=== PATIENT | female | born 1935 | race Caucasian/White ===

== ENCOUNTER 2016-09-24 15:23 | Inpatient (IN) | payer OTHER, MEDICARE ==
[~2016-09-24] VITALS: Ht 172.7 cm; Wt 83.9 kg
[2016-09-24 16:00] VITALS: BP 150/67; PULSE 88; RESP 13; TEMP 99; O2SAT 94
[2016-09-24] MEDS ORDERED: ONDANSETRON HCL 4 MG/2 ML VIAL IV PRN (16:00)
[2016-09-24] MEDS ORDERED: GLUCAGON 1 MG/ML VIAL OTHER PRN (16:00)
[2016-09-24] MEDS ORDERED: SODIUM CHLORIDE 0.9% FLUSH 5 ML FLUSH IVF PRN (16:00)
[2016-09-24] MEDS ORDERED: DEXTROSE 50% IN WATER 50 ML VIAL(D50) IV PUSH PRN (16:00)
[2016-09-24] MEDS: INSULIN NovoLIN REGULAR SUPPLEMENTAL SCALE SQ SCH ×2 (16:00→21:29)
[2016-09-24] MEDS ORDERED: Post-op Orders (for Pharmacy) MISC XX ONE (16:00)
[2016-09-24] MEDS ORDERED: PANTOPRAZOLE SOD 40 MG DELAYED RELEASE TAB PO SCH (16:00)
[2016-09-24] MEDS ORDERED: NALOXONE HCL 0.4 MG/ML AMP IV PRN (16:00)
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
[2016-09-24] MEDS: MORPHINE SULFATE 4 MG/ML INJ IV PRN ×2 (16:39→18:40)
[2016-09-24 17:59] LABS: APTT (PATIENT) 22.5 SEC (24.3-30.1); PROTHROMBIN TIME - PATIENT 10.5 SEC (9.8-11.6)
[2016-09-24 18:02] LABS: HEMATOCRIT 31.7 % (35.0-46.0); MEAN CELL VOLUME 88.5 FL (80.0-100.0); MEAN CORPUSCULAR HEMOGLOBIN 28.9 PG (27.0-34.0); MEAN CORPUSCULAR HGB CONC 32.7 % (32.0-36.0); PLATELET COUNT 183 TH/MM3 (150-450); RED BLOOD COUNT 3.58 MIL/MM3 (4.00-5.30); RED CELL DISTRIBUTION WIDTH 14.2 % (11.6-17.2); REVIEW FLAG FINAL; WHITE BLOOD COUNT 9.4 TH/MM3 (4.0-11.0)
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
[2016-09-24 19:33] LABS: ANION GAP 9 MEQ/L (5-15); AST (GOT) 34 U/L (15-37); BLOOD UREA NITROGEN 24 MG/DL (7-18); CHLORIDE 106 MEQ/L (98-107); GLOMERULAR FILTRATION RATE 51 ML/MIN (>89); SODIUM (NA) 140 MEQ/L (136-145)
[2016-09-24 19:37] LABS: ALKALINE PHOSPHATASE 63 U/L (45-117); ALT (GPT) 29 U/L (10-53); TOTAL BILIRUBIN ADULT 0.7 MG/DL (0.2-1.0)
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
[2016-09-24 20:00] VITALS: BP 134/62; PULSE 84; RESP 13; TEMP 97.6; O2SAT 99
[2016-09-24] MEDS ORDERED: DOCUSATE SODIUM 100 MG CAP PO SCH (21:00)
[2016-09-24] MEDS: SODIUM CHLORIDE 0.9% FLUSH 5 ML FLUSH IVF SCH (21:28)
[2016-09-24 22:42] VITALS: O2SAT 98
[2016-09-25] VITALS: BP 137/62; PULSE 80; RESP 16; O2SAT 98
[2016-09-25 04:00] VITALS: BP 182/77; PULSE 84; RESP 11; O2SAT 99
[2016-09-25 04:15] VITALS: BP 167/105
[2016-09-25 04:21] LABS: HEMATOCRIT 31.8 % (35.0-46.0); MEAN CELL VOLUME 88.7 FL (80.0-100.0); MEAN CORPUSCULAR HEMOGLOBIN 29.5 PG (27.0-34.0); MEAN CORPUSCULAR HGB CONC 33.3 % (32.0-36.0); PLATELET COUNT 179 TH/MM3 (150-450); RED BLOOD COUNT 3.58 MIL/MM3 (4.00-5.30); RED CELL DISTRIBUTION WIDTH 14.5 % (11.6-17.2); REVIEW FLAG FINAL; WHITE BLOOD COUNT 8.6 TH/MM3 (4.0-11.0)
[2016-09-25 04:30] VITALS: BP 151/67
[2016-09-25] MEDS: oxyCODONE/ACETAMINOPHEN 5 MG/325 MG TAB PO PRN ×2 (04:36→11:32)
[2016-09-25 04:37] LABS: BICARBONATE 26.4 MEQ/L (21.0-32.0); POTASSIUM 4.4 MEQ/L (3.5-5.1)
--- NOTE | 2016-09-25 06:01 | RADRPT ---
EXAM DATE/TIME: 09/25/2016 04:40 [facility] COMPARISON: CHEST SINGLE AP, September 24, 2016, 16:07. INDICATIONS : Short of breath. MEDICAL HISTORY : None. SURGICAL HISTORY : None. ENCOUNTER: Subsequent ACUITY: 3 days PAIN SCORE: 7/10 LOCATION: Bilateral chest FINDINGS: The cardiac silhouette is enlarged in transverse diameter. There is prominence of the central pulmona ry vasculature with indistinct vascular margins compatible with vascular congestion but no evidence o f overt failure. There is eventration of the right hemidiaphragm. CONCLUSION: 1. Cardiomegaly and findings of vascular congestion without overt failure. The findings are similar t o the prior exam. Orestes Bartholomew MD on September 25, 2016 at 6:00 Board Certified Radiologist. This report was verified electronically.
[2016-09-25] MEDS: INSULIN NovoLIN REGULAR SUPPLEMENTAL SCALE SQ SCH ×2 (06:33→11:31)
[2016-09-25 08:00] VITALS: BP 139/66; PULSE 89; RESP 14; TEMP 97.8; O2SAT 99
[2016-09-25] MEDS: SODIUM CHLORIDE 0.9% FLUSH 5 ML FLUSH IVF SCH (08:30)
--- NOTE | 2016-09-25 08:47 | EKG ---
Date Performed: 09/24/2016 Time Performed: 16:41:54 PTAGE: 80 years EKG: Sinus rhythm NORMAL ECG PREVIOUS TRACING : 02/02/2003 11.07 DOCTOR: Christiano Yee Interpretating Date/Time 09/25/2016 08:42:47
[2016-09-25] MEDS ORDERED: DOCUSATE SODIUM 50 MG/SENNA 8.6 MG TAB PO SCH (09:00)
[2016-09-25 12:00] VITALS: BP 147/74; PULSE 92; RESP 18; TEMP 98.4; O2SAT 95
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
== END 2016-09-25 15:48 | disposition home or self-care (01) | DRG 552 ==
LOC: OBSVTOIN 15:23 → N03B 15:23
PROVIDERS: ADMIT Surgery; ATTEND Surgery
DX: S32.030A Wedge compression fracture of third lumbar vertebra, initial encounter for closed fracture (principal); E11.9 Type 2 diabetes mellitus without complications; S22.39XA Fracture of one rib, unspecified side, initial encounter for closed fracture; E03.9 Hypothyroidism, unspecified; S32.040A Wedge compression fracture of fourth lumbar vertebra, initial encounter for closed fracture; S32.029A Unspecified fracture of second lumbar vertebra, initial encounter for closed fracture; V43.52XA Car driver injured in collision with other type car in traffic accident, initial encounter; Y92.410 Unspecified street and highway as the place of occurrence of the external cause; Z85.038 Personal history of other malignant neoplasm of large intestine; M50.30 Other cervical disc degeneration, unspecified cervical region; M51.36 Other intervertebral disc degeneration, lumbar region
CPT/HCPCS: 71010; 80048; 80053; 82948; 85027; 85610; 85730; 87641; 93005; 94150; J2270; L0484